=== PATIENT | male | born 1975 | race African-American/Black ===

== ENCOUNTER 2016-11-08 06:29 | Emergency (ER) | payer MEDICAID ==
[~2016-11-08] VITALS: Ht 188 cm; Wt 104.3 kg
[2016-11-08 07:26] VITALS: BP 129/88
[2016-11-08] MEDS ORDERED: GENTAMICIN OPTH sol 0.3% 5ml EACHEYE ONE (07:30)
== END 2016-11-08 08:43 | disposition home or self-care (01) ==
LOC: ER 06:40
DX: H10.9 Unspecified conjunctivitis (principal); J45.909 Unspecified asthma, uncomplicated; F12.10 Cannabis abuse, uncomplicated; Z88.6 Allergy status to analgesic agent

== ENCOUNTER 2025-03-23 12:21 | Emergency (ER) | payer OTHER, MEDICAID ==
[~2025-03-23] VITALS: Ht 188 cm; Wt 102.8 kg
--- NOTE | 2025-03-23 13:51 | ED.PDOC ---
History of Present Illness(SKN HPI Comments 49 year old male presented with a dog bite to the right forearm and finger injury onset today. The patient reported being bitten while trying to break up a fight between his dog and a stray dog. The incident resulted in three puncture wounds to the right forearm and an injury to the tip of the ring finger. The patient reported not being diabetic and mentioned a tetanus shot two years ago. The patient reported being allergic to Motrin and requested pain relief. Chief Complaint: Animal Bite Time Seen by MD: 13:40 History of Present Illness: Medications, Allergies Allergies: Coded Allergies: Ibuprofen (Verified Allergy, Unknown, 11/08/16) Information Source: Patient Mode of Arrival: Ambulatory Severity: Moderate Timing: Hours Duration: Since onset Prehospital treatment: None Location: Arm, Hand Mechanism: Dog Occurence: Outdoors Object: None Condition of Object: Other Retained Foreign Body: No Wound Type: Puncture Immunization Status of Animal: Unknown Tetanus: UTD History of: None Past Medical History PAST MEDICAL HISTORY: Asthma Surgical History: Denies all surgeries Family History Family History: Unobtainable Social History Smoker: Non-Smoker Alcohol: Denies ETOH Use Drugs: Marijuana Lives In: Home All Other Systems: Reviewed and Negative (as per HPI) Physical Exam General Appearance: No Apparent Distress, Normal HEENT: Normal ENT Inspection, Pharynx Normal, TMs Normal Neck: Full Range of Motion, Non-Tender, Normal, Normal Inspection Respiratory: Chest Non-Tender, Lungs Clear, No Accessory Muscle Use, No Respiratory Distress, Normal Breath Sounds Cardiovascular: No Edema, No JVD, No Murmur, No Gallop, Normal Peripheral Pulses, Regular Rate/Rhythm Breast Exam: Deferred Gastrointestinal: No Organomegaly, Non Tender, No Pulsatile Mass, Normal Bowel Sounds, Soft Genitalia: Deferred Pelvic: Deferred Rectal: Deferred Extremities: No calf tenderness, Normal capillary refill, No pedal edema Musculoskeletal : Location: Right Extremity Location: Forearm (3 puncutre wounds noted) Apperance: Normal Neurologic: Alert, roper operator II-XII nml as Tested, No Motor Deficits, Normal Affect, Normal Mood, No Sensory Deficits Cerebellar Function: Normal Reflexes: Normal Skin: Dry, Normal Color, Warm Lymphatic: No Adenopathy Was a procedure done? Was a procedure done?: No X-Ray, Labs, Meds, VS Vital Signs Date Time Temp Pulse Resp B/P (MAP) Pulse Ox O2 Delivery O2 Flow Rate FiO2 03/23/25 15:47 99 16 98 Room Air 03/23/25 15:47 98.6 99 16 138/76 (96) 98 98.6 03/23/25 12:23 98.7 130 20 141/82 98 98.7 [facility] [id number] [place] [id number] Ph: [phone] DIAGNOSTIC IMAGING Diagnostic Imaging Report : [id number] Signed PATIENT: TRAE TIMMONS DACCT: [id number] UNIT: [id number] : 1975 LOC: ER ROOM / BED: / AGE / SEX: 49 / M ADM STATUS: REG ER SERVICE [id number] ORDERING PHYSICIAN: AUSTIN MERCADO NP PROCEDURE(s): RHAN - R HAND 3 VIEW XRAY REASON: dog bite ORDER NUMBER(s): [id number], ACCESSION NUMBER(s): [id number] CLINICAL INDICATION: dog bite TECHNIQUE: 3 radiographic views of the right hand were obtained. COMPARISON: None FINDINGS/IMPRESSION: There is absence of the tuft of the 3rd digit distal phalanx with wound over the distal 3rd digit and associated soft tissue edema. ATED BY: ELYSIA LEUNG DO DICTATED DATE/TIME: 03/23/25 144 SIGNED BY: ELYSIA LEUNG DO SIGNED DATE/TIME: 03/23/25 144 CC: X-Ray, Labs, Meds, VS Comment 49 year old male presented with a dog bite to the right forearm and finger injury onset today. Patient arrives alert and oriented, ABC's intact, afebrile, vital signs stable, saturating well in room air Diagnostic imaging ordered by me and results interpreted by radiology : XR R HAND 3V:IMPRESSION: There is absence of the tuft of the 3rd digit distal phalanx with wound over the distal 3rd digit and associated soft tissue edema. Time of 1ST Reevaluation: 14:20 Reevaluation 1ST: Improved Patient Education/Counseling: Diagnosis, Treatment Family Education/Counseling: No Family Present SEPSIS Sepsis Screen Date sepsis recognized/suspect: Mar 23, 2025 Time Sepsis recognized/suspect: 1222 Recent Procedure: No On Antibiotic Therapy: No Respiratory Rate >20: No Heart Rate >90: Yes Temp<36 C (96.8 F) or >38.3 C: No SBP <90 or MAP <65 mmHG: No New Acute Mental Status Change: No Is the patient on CPAP, BIPAP,: No Physician Orders R Hand 3 View Xray (03/23/25 13:47) Vital Signs Date Time Temp Pulse Resp B/P (MAP) Pulse Ox O2 Delivery O2 Flow Rate FiO2 03/23/25 15:47 99 16 98 Room Air 03/23/25 15:47 98.6 99 16 138/76 (96) 98 98.6 03/23/25 12:23 98.7 130 20 141/82 98 98.7 Departure 1 Departure Time of Disposition: 15:39 Impression: Primary Impression: Dog bite Qualified Codes: W54.0XXA - Bitten by dog, initial encounter Disposition: HOME / SELF CARE / HOMELESS Condition: Stable Critical Care Note Critical Care Time?: No Stability Stability form required: No Heart Score Heart Score: Heart Score Response (Comments) Value History N/A 0 EKG N/A 0 Age N/A 0 Risk Factors N/A 0 Troponin N/A 0 Total 0 I personally scribed for AUSTIN MERCADO AIRCRAFT SYSTEMS TECHNICIAN ([email or web address]) on 03/23/25 at 13:51. Electronically submitted by Margarita Tao ([email or web address]). I personally scribed for AUSTIN MERCADO [employer]CRAFT SYSTEMS TECHNICIAN ([email or web address]) on 03/23/25 at 13:55. Electronically submitted by Margarita Tao ([email or web address]). I personally scribed for AUSTIN MERCADO [employer]CRAFT SYSTEMS TECHNICIAN ([email or web address]) on 03/23/25 at 14:56. Electronically submitted by Margarita Tao ([email or web address]). AUSTIN MERCADO NP Mar 23, 2025 13:51
--- NOTE | 2025-03-23 14:43 | DVH ---
CLINICAL INDICATION: dog bite TECHNIQUE: 3 radiographic views of the right hand were obtained. COMPARISON: None FINDINGS/IMPRESSION: There is absence of the tuft of the 3rd digit distal phalanx with wound over the distal 3rd digit and associated soft tissue edema.
[2025-03-23] MEDS: LIDOCAINE 1% HCL (LOCAL ANESTH.) INJ 20ML MDV ID ONE (15:40)
[2025-03-23 15:47] VITALS: BP 138/76; PULSE 99; RESP 16; TEMP 98.6; O2SAT 98
== END 2025-03-23 15:55 | disposition home or self-care (01) ==
LOC: ER 12:21
DX: S51.851A Open bite of right forearm, initial encounter (principal); J45.909 Unspecified asthma, uncomplicated; Z88.6 Allergy status to analgesic agent; W54.0XXA Bitten by dog, initial encounter; Y93.89 Activity, other specified; Y92.89 Other specified places as the place of occurrence of the external cause; Y99.8 Other external cause status
CPT/HCPCS: 73130; 99283; J2003